=== PATIENT | male | born 1940 | race Caucasian/White ===

== ENCOUNTER 2020-08-10 09:38 | Outpatient (CLI) | payer MEDICARE, BC | END 2020-08-10 23:59 | disposition home or self-care (01) | LOC: RAD 09:38 → EDSTATUS 11:00 → RAD 23:59 | PROVIDERS: ATTEND Internal Medicine Hematology & Oncology | DX: Z45.2 Encounter for adjustment and management of vascular access device (principal); C83.35 Diffuse large B-cell lymphoma, lymph nodes of inguinal region and lower limb | CPT/HCPCS: 36573; C1751 ==